=== PATIENT | female | born 2000 | race Two or more races ===

== ENCOUNTER 2019-12-28 12:05 | Emergency (ER) | payer OTHER ==
[~2019-12-28] VITALS: Ht 157.5 cm; Wt 53.2 kg
--- NOTE | 2019-12-28 12:25 | PHYS DOC ---
General Adult EDM: Chief Complaint: VAGINAL BLEEDING HPI: HPI: 19-year-old female with FDLMP last week of October, currently about 6 weeks with confirmed IUP on ultrasound last week, who presents for evaluation of vaginal bleeding over the last day or so. Associate with pelvic cramping. Her LOG OPERATIONS COORDINATOR is Dr. Ellington at [facility]. 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 No prior abdominal surgeries. She did have some mild vaginal spotting earlier on in the course. Has not required prior D&Cs. IUP demonstrated on US last week with FHR 150s according to patient. Review of Systems: Review of Systems: Gen: No fever, chills. CV: No CP, palpitations. Resp. No SOB, cough. GI: No N/V. Reports pelvic cramping. : No dysuria. Reports vaginal bleeding. Neuro: No GUNN, dizziness MSK: No myalgia, arthralgia Skin: No acute rash or lesion. Remainder of systems reviewed and negative unless otherwise specified. Heart Score: Risk Factors: Risk Factors: DM, Current or recent (<one month) smoker, HTN, HLP, family history of CAD, obesity. Risk Scores: Score 0 - 3: 2.5% MACE over next 6 weeks - Discharge Home Score 4 - 6: 20.3% MACE over next 6 weeks - Admit for Clinical Observation Score 7 - 10: 72.7% MACE over next 6 weeks - Early Invasive Strategies Allergies: Allergies: Allergies Coded Allergies Type Severity Reaction Last Updated Verified No Known Drug Allergies 12/28/19 No Physical Exam: PE: Gen: NAD. Well nourished. Head: NC/AT. Eyes: No scleral icterus. No conjunctival injection. ENT: MMM. Posterior OP clear. Neck: Supple. NT. No JVD. CV: RRR. Peripheral pulses intact. Resp: CTAB. Abd: Soft. NT. ND. : Speculum exam with clotted blood in the posterior fornix, no significant active bleeding. Os open. MSK: No peripheral cyanosis. No edema. Neuro: Awake and alert. Skin. Warm. Dry. Psych: Appropriate mood & affect. Current Patient Data: Vital Signs: Vital Signs Date Time Temp Pulse Resp B/P (MAP) Pulse Ox O2 Delivery O2 Flow Rate FiO2 12/28/19 12:15 98.2 90 14 121/66 (84) 98 Room Air EKG: EKG: [] Radiology/Procedures: Radiology/Procedures: [] Course & Med Decision Making: Course & Med Decision Making Pertinent Labs and Imaging studies reviewed. (See chart for details) In summary, 19-year-old female with prior history of multiple miscarriages, who presents for evaluation of vaginal bleeding in , estimated to be about 6 weeks . Hemodynamically stable. Normal hemoglobin. Blood type is A positive, no indication for RhoGam. Quantitative hCG and pelvic ultrasound remain pending. Spoke with Dr. Hankins with Dr. Ellington re: patient findings of demise. Prior hcg was 6400, now down to 3500. While on the phone, patient states she may have passed POC. No significant vaginal bleeding, though does report some ongoing cramping. Dr. Hankins recommends cytotec 800 mcg x1, though our pharmacy does not carry it. I spoke with pharmacist at patient's preferred pharmacy ([facility] in [place]), who states they carry the medication. Will Rx cytotec. Outpatient FU with Dr. Ellington. Return precautions given. Recommended possible referral to further evaluate cause of recurrent miscarriages. Joaquin Disclaimer: Dragon Disclaimer: This electronic medical record was generated, in whole or in part, using a voice recognition dictation system. Departure Departure: Impression: Primary Impression: Miscarriage Disposition: 01 HOME/RESIDENCE PRIOR TO ADM Condition: STABLE Referrals: PCP,NO (PCP) Patient Instructions: Miscarriage, [id number] Additional Instructions: Please fill the prescribed medication. Please follow up with your OB Dr. Ellington in the next 2-3 days. Scripts Acetaminophen With Codeine (TYLENOL WITH CODEINE #3 TABLET) 1 Each Tablet 1 TAB PO Q8HRS PRN for pain MDD 2 Tablet(s), #12 TAB 0 Refills Prov: LE,DMOINIC H DO 12/28/19 Misoprostol (CYTOTEC) 200 Mcg Tablet 800 MCG PO ONCE for miscarriage, #1 TAB Prov: LE,DOMINIC H DO 12/28/19 Justification of Admission: Justification of Admission: Justification of Admission Dx: N/A LE,DOMINIC H DO Dec 28, 2019 12:25
[2019-12-28 12:51] LABS: BASO % 1 % (0-3); EOS # 0.1 x10^3/uL (0.0-0.7); EOS % 1 % (0-3); HEMATOCRIT 39.2 % (36.0-47.0); HEMOGLOBIN 12.5 g/dL (12.0-15.5); LYMPH # 1.8 x10^3/uL (1.0-4.8); LYMPH % 17 % (24-48); MEAN CORPUSCULAR HEMOGLOBIN 24 pg (25-35); MEAN CORPUSCULAR HGB CONC 32 g/dL (31-37); MEAN CORPUSCULAR VOLUME 76 fL (79-100); MONO # 0.9 x10^3/uL (0.0-1.1); MONO % 9 % (0-9); NEUT # 7.6 x10^3uL (1.8-7.7); NEUT % 73 % (31-73); PLATELET COUNT 301 x10^3/uL (140-400); RED BLOOD COUNT 5.16 x10^6/uL (3.50-5.40); WHITE BLOOD COUNT 10.4 x10^3/uL (4.0-11.0)
[2019-12-28 13:01] LABS: CREATININE 0.9 mg/dL (0.6-1.0); POTASSIUM 4.1 mmol/L (3.5-5.1)
[2019-12-28 13:09] LABS: ALBUMIN/GLOBULIN RATIO 1.1 (1.0-1.7); MAGNESIUM 2.1 mg/dL (1.8-2.4); TOTAL BILIRUBIN 0.4 mg/dL (0.2-1.0); TOTAL PROTEIN 7.6 g/dL (6.4-8.2)
[2019-12-28 13:29] VITALS: BP 118/83
--- NOTE | 2019-12-28 13:56 | RAD ---
OB <14 WKS W/TV History: Reason: vaginal bleeding in / Spl. Instructions: / History: Reportedly outside imaging demonstrated the live intrauterine with heart rate. Comparison: None. Technique: Grayscale and color Doppler imaging of the pelvis was performed using transabdominal technique. Findings: The uterus measures 8.9 x 5.2 x 4.7 cm. Small irregular oblong gestational sac within the lower uterine segment. Yolk sac not identified. Hamill-rump length identified measures 0.3 cm. Estimated gestational age by ultrasound 5 weeks 6 days. No heart rate is identified. Right ovary measures 3.5 x 2.2 x 1.5 cm. Left ovary measures 2.7 x 1.8 x 1.4 cm. Normal Doppler flow to the ovaries bilaterally. No adnexal masses are seen. IMPRESSION: 1. Irregular gestational sac within the lower endometrial canal. No heart rate identified. Findings concerning for demise. Electronically signed by: Vinny Nugent DO (12/28/2019 1:53 PM) [id number]
[2019-12-28] MEDS ORDERED: ACET-704 PO (14:13)
[2019-12-28] MEDS ORDERED: MISO200T PO (14:13)
[2019-12-28] MEDS ORDERED: HYDROcodone/APAP 5/325MG 1 TAB TABLET PO ONE (14:15)
== END 2019-12-28 14:22 | disposition home or self-care (01) ==
LOC: ER 12:05
DX: O03.9 Complete or unspecified spontaneous abortion without complication (principal)
CPT/HCPCS: 36415; 76801; 76817; 80053; 83735; 84702; 85025; 86850; 86900; 86901; 99284-25